=== PATIENT | female | born 1975 | race Two or more races ===

== ENCOUNTER 2021-02-17 18:26 | Emergency (ER) | payer SELFPAY ==
[~2021-02-17] VITALS: Ht 162.6 cm; Wt 63.0 kg
[2021-02-17 18:47] LABS: BILIRUBIN,URINE NEGATIVE (NEG); CLARITY,URINE CLOUDY; COLOR,URINE YELLOW; NITRITE,URINE POSITIVE (NEG); PROTEIN,URINE 100 mg/dL (NEG-TRACE); UROBILINOGEN,URINE 0.2 mg/dL (0.2 mg/dL)
[2021-02-17 18:59] LABS: WBC,URINE TNTC /HPF (0-4)
[2021-02-17 19:02] LABS: BACTERIA,URINE MANY /HPF (0-FEW)
[2021-02-17 19:03] LABS: AMORPHOUS SEDIMENT,UR PRESENT /HPF; RBC,URINE 20-40 /HPF (0-2)
[2021-02-17 19:14] LABS: BASO % 0 % (0-3); EOS % 0 % (0-3); HEMATOCRIT 32.3 % (36.0-47.0); HEMOGLOBIN 10.2 g/dL (12.0-15.5); LYMPH # 0.8 x10^3/uL (1.0-4.8); LYMPH % 6 % (24-48); MEAN CORPUSCULAR HEMOGLOBIN 23 pg (25-35); MEAN CORPUSCULAR HGB CONC 31 g/dL (31-37); MEAN CORPUSCULAR VOLUME 74 fL (79-100); MONO # 0.9 x10^3/uL (0.0-1.1); MONO % 7 % (0-9); NEUT # 11.8 x10^3/uL (1.8-7.7); NEUT % 87 % (31-73); PLATELET COUNT 302 x10^3/uL (140-400); RED CELL DISTRIBUTION WIDTH 15.5 % (11.5-14.5); WHITE BLOOD COUNT 13.6 x10^3/uL (4.0-11.0)
[2021-02-17] MEDS ORDERED: FAMOTIDINE 20 MG/2 ML VIAL IVP ONE (19:15)
[2021-02-17] MEDS ORDERED: KETOROLAC 15 MG/ML VIAL. IVP ONE (19:15)
[2021-02-17] MEDS ORDERED: ONDANSETRON PF 4 MG/2 ML VIAL. IVP ONE (19:15)
[2021-02-17] MEDS ORDERED: cefTRIAXone IV Push 1 GM VIAL. IVP ONE (19:15)
[2021-02-17] MEDS ORDERED: ACETAMINOPHEN 500 MG TABLET PO ONE (19:15)
[2021-02-17] MEDS ORDERED: IV NORMAL SALINE 1000ML BAG 1,000 ML IV ONE ×3 (19:15→21:30)
[2021-02-17 19:23] LABS: PROTHROMBIN TIME PATIENT 14.4 SEC (11.7-14.0)
[2021-02-17 19:33] LABS: CALCIUM 8.9 mg/dL (8.5-10.1); CREATININE 0.7 mg/dL (0.6-1.0); GFR 90.5; POTASSIUM 3.5 mmol/L (3.5-5.1)
[2021-02-17 19:41] LABS: ALBUMIN 3.4 g/dL (3.4-5.0); ALBUMIN/GLOBULIN RATIO 0.8 (1.0-1.7); MAGNESIUM 1.8 mg/dL (1.8-2.4); TOTAL BILIRUBIN 0.4 mg/dL (0.2-1.0); TOTAL PROTEIN 7.8 g/dL (6.4-8.2)
[2021-02-17] MEDS ORDERED: IOHEXOL 350 MG/ML 100 ML VIAL. IV ONE (19:45)
[2021-02-17 19:49] LABS: CREATINE KINASE 84 U/L (26-192)
[2021-02-17] MEDS ORDERED: CONTRAST GIVEN. MC PRN (20:00)
--- NOTE | 2021-02-17 20:05 | EKG ---
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
[2021-02-17 20:17] LABS: % BANDS 1 % (0-9); % LYMPHS 5 % (24-48); % MONOS 1 % (0-10); % SEGS 93 % (35-66)
[2021-02-17 20:19] LABS: PLT ESTIMATE ADEQUATE (ADEQUATE)
--- NOTE | 2021-02-17 20:19 | PHYS DOC ---
Past Medical History Past Medical History: No Pertinent History Past Surgical History: Smoking Status: Never Smoker Alcohol Use: None Drug Use: None General Adult EDM: Chief Complaint: NAUSEA/VOMITING/DIARRHEA HPI: HPI: Patient is a 45-year-old female presents with report of right-sided flank pain, fever/chills, nausea, and generalized weakness and malaise. Patient reports symptoms over the last 2 days. Denies known sick contacts. Denies known exposure to COVID-19. Patient does report some dysuria that occurred approximately 7 days prior. Denies trauma. Denies . Denies rash. Of note: patient is Kitt[place]-speaking only and requires use of recreation attendant Direct[employer] for translation. Review of Systems: Review of Systems: Constitutional: Reports fever, chills, body aches, fatigue, and generalized malaise Eyes: Denies redness or eye pain HENT: Denies nasal congestion or sore throat Respiratory: Denies cough or shortness of breath Cardiovascular: Denies chest pain or palpitations GI: Reports right upper abdominal pain, nausea, and vomiting : Reports dysuria; denies hematuria Musculoskeletal: Reports right-sided flank pain; denies leg pain Integument: Denies rash or skin lesions Neurologic: Denies headache, focal weakness or sensory changes; reports generalized weakness Complete systems were reviewed and found to be within normal limits, except as documented in this note. Heart Score: C/O Chest Pain: N/A Current Medications: Current Medications Medications (Trade) Dose Ordered Sig/Maryam Start Time Stop Time Status Last Admin Dose Admin Acetaminophen (Tylenol) 500 mg 1X ONCE 02/17/21 19:15 02/17/21 19:18 DC 02/17/21 19:35 500 MG Ceftriaxone Sodium (Rocephin) 1 gm 1X ONCE 02/17/21 19:15 02/17/21 19:18 DC 02/17/21 19:30 1 GM Famotidine (Pepcid Vial) 20 mg 1X ONCE 02/17/21 19:15 02/17/21 19:16 DC 02/17/21 19:34 20 MG Info (CONTRAST GIVEN -- Rx MONITORING) 1 each PRN DAILY PRN 02/17/21 20:00 02/19/21 19:59 Iohexol (Omnipaque 350 Mg/ml) 100 ml 1X ONCE 4/12/21 19:45 02/17/21 19:54 DC 02/17/21 20:14 100 ML Ketorolac Tromethamine (Toradol 15mg Vial) 15 mg 1X ONCE 02/17/21 19:15 02/17/21 19:16 DC 02/17/21 19:28 15 MG Ondansetron HCl (Zofran) 4 mg 1X ONCE 02/17/21 19:15 02/17/21 19:16 DC 02/17/21 19:27 4 MG Sodium Chloride 1,000 ml @ 1,000 mls/hr 1X ONCE 02/17/21 19:15 02/17/21 20:14 DC 02/17/21 19:21 1,000 MLS/HR Allergies: Allergies: Allergies Coded Allergies Type Severity Reaction Last Updated Verified No Known Drug Allergies 02/17/21 No Physical Exam: PE: Constitutional: Well developed, well nourished, no acute distress, ill but non- toxic appearance HENT: Normocephalic, atraumatic Eyes: PERRL, EOMI, conjunctiva normal, no discharge Neck: Normal range of motion, no tenderness, supple, no meningeal signs Lungs & Thorax: No respiratory distress, equal chest rise and fall Cardiovascular: Tachycardia, equal radial pulses bilaterally Abdomen: Soft, right upper quadrant tenderness, mild guarding, no rebound tenderness Skin: Warm, dry, no erythema, no rash Back: No tenderness, right CVA tenderness Extremities: No tenderness, ROM intact, no edema Neurologic: Alert and oriented X 3, no focal deficits noted Psychologic: Affect normal, judgment normal Current Patient Data: Labs: Laboratory Tests Test 02/17/21 18:32 02/17/21 18:38 02/17/21 19:00 Urine Collection Type Void Urine Color Yellow Urine Clarity Cloudy Urine pH 6.0 (<5.0-8.0) Urine Specific Friend 1.025 (1.000-1.030) Urine Protein 100 mg/dL (NEG-TRACE) Urine Glucose (UA) Negative mg/dL (NEG) Urine Ketones (Stick) >=80 mg/dL (NEG) Urine Blood Large (NEG) Urine Nitrite Positive (NEG) Urine Bilirubin Negative (NEG) Urine Urobilinogen Dipstick 0.2 mg/dL (0.2 mg/dL) Urine Leukocyte Esterase Large (NEG) Urine RBC 20-40 /HPF (0-2) Urine WBC Tntc /HPF (0-4) Urine Squamous Epithelial Cells Many /LPF Urine Amorphous Sediment Present /HPF Urine Bacteria Many /HPF (0-FEW) Urine Mucus Marked /LPF POC Urine HCG, Qualitative Hcg negative (Negative) White Blood Count 13.6 x10^3/uL (4.0-11.0) H Red Blood Count 4.40 x10^6/uL (3.50-5.40) Hemoglobin 10.2 g/dL (12.0-15.5) L Hematocrit 32.3 % (36.0-47.0) L Mean Corpuscular Volume 74 fL (79-100) L Mean Corpuscular Hemoglobin 23 pg (25-35) L Mean Corpuscular Hemoglobin Concent 31 g/dL (31-37) Red Cell Distribution Width 15.5 % (11.5-14.5) H Platelet Count 302 x10^3/uL (140-400) Neutrophils (%) (Auto) 87 % (31-73) H Lymphocytes (%) (Auto) 6 % (24-48) L Monocytes (%) (Auto) 7 % (0-9) Eosinophils (%) (Auto) 0 % (0-3) Basophils (%) (Auto) 0 % (0-3) Neutrophils # (Auto) 11.8 x10^3/uL (1.8-7.7) H Lymphocytes # (Auto) 0.8 x10^3/uL (1.0-4.8) L Monocytes # (Auto) 0.9 x10^3/uL (0.0-1.1) Eosinophils # (Auto) 0.0 x10^3/uL (0.0-0.7) Basophils # (Auto) 0.0 x10^3/uL (0.0-0.2) Platelet Estimate Pending Prothrombin Time 14.4 SEC (11.7-14.0) H Prothrombin Time INR 1.2 (0.8-1.1) H Activated Partial Thromboplast Time 35 SEC (24-38) Sodium Level 136 mmol/L (136-145) Potassium Level 3.5 mmol/L (3.5-5.1) Chloride Level 103 mmol/L (98-107) Carbon Dioxide Level 24 mmol/L (21-32) Anion Gap 9 (6-14) Blood Urea Nitrogen 13 mg/dL (7-20) Creatinine 0.7 mg/dL (0.6-1.0) Estimated GFR (Cockcroft-Gault) 90.5 BUN/Creatinine Ratio 19 (6-20) Glucose Level 111 mg/dL (70-99) H Calcium Level 8.9 mg/dL (8.5-10.1) Magnesium Level 1.8 mg/dL (1.8-2.4) Total Bilirubin 0.4 mg/dL (0.2-1.0) Aspartate Amino Transferase (AST) 25 U/L (15-37) Alanine Aminotransferase (ALT) 40 U/L (14-59) Alkaline Phosphatase 85 U/L (46-116) Creatine Kinase 84 U/L (26-192) Creatine Kinase MB (Mass) < 0.5 ng/mL (0.0-3.6) Creatine Kinase MB Relative Index % (0-4) Troponin I Quantitative < 0.017 ng/mL (0.000-0.055) Total Protein 7.8 g/dL (6.4-8.2) Albumin 3.4 g/dL (3.4-5.0) Albumin/Globulin Ratio 0.8 (1.0-1.7) L Lipase 96 U/L (73-393) Laboratory Tests 02/17/21 19:00 Laboratory Tests 02/17/21 19:00 Vital Signs: Vital Signs Date Time Temp Pulse Resp B/P (MAP) Pulse Ox O2 Delivery O2 Flow Rate FiO2 02/17/21 18:31 101.0 121 24 134/64 (87) 97 101.0 EKG: EKG: @1956 NSR at 93bpm, NO ST elevation, QRS 74ms, QT/QTc 346/433ms, Q wave III Radiology/Procedures: Radiology/Procedures: PROCEDURE: CT ANGIO CHEST W ABD PEL W/ Exam: CT of chest, abdomen and pelvis with contrast INDICATION: Fever, right upper quadrant pain, cough TECHNIQUE: Sequential axial images through the chest, abdomen and pelvis obtained following the administration 100 mL of Omni 350 IV contrast. Sagittal and coronal reformatted images were reconstructed from the axial data and reviewed. Comparisons: None FINDINGS: Visualized portions of the thyroid are unremarkable. No enlarged mediastinal lymph nodes. Heart size is normal. No pericardial effusion. Thoracic aorta has a normal course and caliber. Pulmonary artery is not enlarged. Airways are patent. No consolidation or pneumothorax. No suspicious lung nodules are noted. No pleural effusion or thickening. Liver, spleen, pancreas, gallbladder and adrenals are unremarkable. There is a staghorn calculus noted within the right kidney with hypoenhancement of the right kidney and mild hydronephrosis. Mild ureteral wall enhancement is also noted at the right renal pelvis. Nonobstructing left renal calculus is see n. No ureteral calculi. Bladder is decompressed not well evaluated. Uterus is not enlarged. No abnormal adnexal mass. Large and small bowel are unremarkable. Appendix is normal. No free intra-abdomi nal air or fluid. No obstruction. Abdominal aorta has a normal course and caliber. Abdominal vasculature is patent. No enlarged intra-abdominal lymph nodes are identified. No suspicious osseous lesions or acute fractures. IMPRESSION: 1. Staghorn calculus within the right kidney with mild right-sided hydronephrosis and hypoenhancement perinephric stranding. Additionally there is mild ureteral wall enhancement of the right renal pelvis. Correlate with urinalysis for infection. 2. No acute process identified in the abdomen or pelvis. Exposure: One or more of the following in the visualized dose reduction techniques were utilized for this examination: 1. Automated exposure control 2. Adjustment of the MA and/or KV according to patient size 3. Use of iterative of reconstructive technique Electronically signed by: Angela Patel MD (02/17/2021 8:40 PM) [facility] Course & Med Decision Making: Course & Med Decision Making Pertinent Labs and Imaging studies reviewed. (See chart for details) Patient presents with right-sided flank pain, fever/chills, generalized malaise and fatigue, and weakness. Cannot exclude COVID-19. COVID-19 obtained. Rapid Covid negative. SIRS criteria met with fever and tachycardia. Concern for sepsis. Patient was tachycardic with right sided pain, could not exclude PE. CTA chest and CT abdomen/pelvis with IV contrast obtained. No respiratory etiology noted. Patient was noted to have mild hydronephrosis with staghorn calculi and stranding concerning for infection. Labs obtained and posted to chart. BUN/creatinine within normal limits. Lactic acid within normal limits. UA with significant signs of infection. Sepsis criteria met. IVF hydration given. Pain/nausea addressed. Empiric antibiotic initiated. Given infected calculi patient requiring urology consultation and admission. [facility] without urology capability at this time. Discussed case and need for transfer with patient and her spouse who are in agreement. Discussed case with transfer center. Dr. Pate (urology) at reporting no need for transfer for staghorn calculi as lithotripsy can be performed after medical treatment. Discussed case with Dr. Jackson (hospitalist) at [facility]. Dr. Jackson uncomfortable with admission given infected kidney stone and concern for worsening of condition without specialist support. Discussed with family and requesting [facility] transfer. Utilized [facility] transfer center call line. Initially had requested transfer to [facility]. [facility] without bed availability. Decision to therefore go to [facility]. Discussed case with Letty Galvan STAINED GLASS WINDOW DESIGNER with Dr. Timmy Ferguson (hospitalist) who is in agreement with transfer for admission to [facility] . Discussed findings and plan with patient and spouse, who acknowledges understanding and agreement. Levi Disclaimer: Levi Disclaimer: This electronic medical record was generated, in whole or in part, using a voice recognition dictation system. Departure Departure Impression: Primary Impression: Sepsis Qualified Codes: A41.9 - Sepsis, unspecified organism Additional Impressions: Staghorn calculus Pyelonephritis Disposition: 02 SHORT TERM HOSPITAL ([facility]- Dr. Phyllis franco) Condition: GUARDED Critical Care Time Critical care time was 45 minutes which includes time at bedside, spent in discussion of patient's care with specialists and/or family members, with interpretation of laboratory and/or radiological studies and is exclusive of procedures. NEIL GREWAL DO Feb 17, 2021 20:19
[2021-02-17 20:23] LABS: ANISOCYTOSIS SLIGHT; BURR CELLS OCC; HYPOCHROMIA SLIGHT; MICROCYTOSIS SLIGHT; OVALOCYTES FEW
--- NOTE | 2021-02-17 20:43 | RAD ---
Exam: CT of chest, abdomen and pelvis with contrast INDICATION: Fever, right upper quadrant pain, cough TECHNIQUE: Sequential axial images through the chest, abdomen and pelvis obtained following the admin istration 100 mL of Omni 350 IV contrast. Sagittal and coronal reformatted images were reconstructed from the axial data and reviewed. Comparisons: None FINDINGS: Visualized portions of the thyroid are unremarkable. No enlarged mediastinal lymph nodes. Heart size is normal. No pericardial effusion. Thoracic aorta has a normal course and caliber. Pulmon val artery is not enlarged. Airways are patent. No consolidation or pneumothorax. No suspicious lung nodules are noted. No pleural effusion or thickening. Liver, spleen, pancreas, gallbladder and adrenals are unremarkable. There is a staghorn calculus noted within the right kidney with hypoenhancement of the right kidney a nd mild hydronephrosis. Mild ureteral wall enhancement is also noted at the right renal pelvis. Nonob structing left renal calculus is seen. No ureteral calculi. Bladder is decompressed not well evaluated. Uterus is not enlarged. No abnormal adnexal mass. Large and small bowel are unremarkable. Appendix is normal. No free intra-abdominal air or fluid. No obstruction. Abdominal aorta has a normal course and caliber. Abdominal vasculature is patent. No enlarged intra-abdominal lymph nodes are identified. No suspicious osseous lesions or acute fractures. IMPRESSION: 1. Staghorn calculus within the right kidney with mild right-sided hydronephrosis and hypoenhancemen t perinephric stranding. Additionally there is mild ureteral wall enhancement of the right renal pelv is. Correlate with urinalysis for infection. 2. No acute process identified in the abdomen or pelvis. Exposure: One or more of the following in the visualized dose reduction techniques were utilized for this examination: 1. Automated exposure control 2. Adjustment of the MA and/or KV according to patient size 3. Use of iterative of reconstructive technique Electronically signed by: Angela Patel MD (02/17/2021 8:40 PM) [facility]
[2021-02-17] MEDS ORDERED: fentaNYL PF VIAL 100 MCG/2 ML VIAL IV ONE ×2 (22:30→23:45)
[2021-02-18] MEDS ORDERED: MORPHINE SULFATE 4 MG/ML VIAL. IV ONE (00:30)
[2021-02-18] MEDS ORDERED: ONDANSETRON PF 4 MG/2 ML VIAL. IVP ONE (00:30)
[2021-02-18 01:22] VITALS: BP 97/53
--- NOTE | 2021-02-20 10:17 | NUR ---
IP: Attempted x 2 to call phone number in EMR concerning pt's COVID results. Phone number is not accepting calls. Attempted to call 's number provided and it is to [facility] main office. Unable to leave a message.
== END 2021-02-18 01:25 | disposition short-term general hospital (02) ==
LOC: ER 18:26
DX: A41.9 Sepsis, unspecified organism (principal); Z20.822 Contact with and (suspected) exposure to COVID-19; N20.0 Calculus of kidney; N12 Tubulo-interstitial nephritis, not specified as acute or chronic; Z98.890 Other specified postprocedural states
CPT/HCPCS: 36415; 71275; 74177; 80053; 81001; 81025; 82553; 83605; 83690; 83735; 84484; 85007; 85025; 85610; 85730; 87040; 87086; 87426; 93005; 96374; 96375; 96376; 99291; C9803; J0696; J1885; J2270; J2405; J3010; J3490; J7030; Q9967; U0003; U0005